=== PATIENT | male | born 1945 | race Caucasian/White ===

== ENCOUNTER → 2016-09-26 | Outpatient (CLI) | payer OTHER ==
--- NOTE | 2016-09-26 11:17 | MR ---
MRI Left Knee Without Contrast History: Left knee pain. Twisting injury. ICD-10 code S89.92XA. Technique: MRI was performed of the left knee using a 3 [employer] MRI system. Sagittal, coronal, and axia l imaging was obtained with standard imaging sequences. Findings: General: There is a mild suprapatellar joint effusion. No evidence for bone contusion. Subcortical cy st is seen in the posterior weightbearing portion of the medial tibial plateau. Lobulated complex flu id collection or soft tissue nodule is seen along the posterior aspect of the biceps femoris tendon a nd proximal fibular head. This is near the peroneal nerve. The signal intensity is mildly heterogeneo us on the T2-weighted imaging but hyperintense. Ligaments and tendons: Anterior cruciate and posterior cruciate ligaments are intact and unremarkable . Medial collateral ligament is unremarkable. There is a thin fluid collection along the distal semim embranosus tendon suggesting a ganglion or atypical extension of a Barrett cyst. The iliotibial band, f ibular collateral ligament, and biceps femoris are unremarkable. Popliteus muscle and tendon are inta ct. Menisci and cartilage: Abnormal signal intensity and contour abnormality are seen at the undersurface of the posterior horn lateral meniscus. Some mild truncation and fraying are seen at the free edge. There is also abnormal signal intensity at the junction of the anterior horn and body to the inferior articular surface. Cartilage signal abnormality and mild thinning are seen in the posterior weightbe aring portion of the lateral compartment. Degenerative signal is seen in the posterior horn medial meniscus extending to the inferior articular surface on a couple sagittal images suggesting a small degenerative undersurface tear. No significan t cartilage attenuation in the medial compartment. Extensor mechanism: Cartilage signal abnormality and thinning are seen in the patellofemoral compartm ent. Thinning is more predominant in the superior lateral facet of the patella with reactive subartic ular bone marrow edema. Quadriceps tendon and patellar tendon are unremarkable. Impression: 1. Undersurface tear lateral meniscus, more predominant in the posterior horn, with contour abnormali ty. 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 2. Small degenerative undersurface tear posterior horn medial meniscus. 3. 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 4. 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 Consider postcontrast imaging to differentiate. 5. Mild suprapatellar joint effusion. 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
== END ==
LOC: FIMAGING 07:37
PROVIDERS: ATTEND Nurse Practitioner Family
DX: S83.282A Other tear of lateral meniscus, current injury, left knee, initial encounter (principal)

== ENCOUNTER → 2016-10-16 | Outpatient (CLI) | payer OTHER ==
[~2016-10-16] MED LIST: GADOBUTROL 10 ML VIAL IVP ONE
--- NOTE | 2016-10-17 11:51 | MR ---
MRI lower extremity, left knee without and with contrast. History: Soft tissue mass evaluation. Ganglion or soft tissue tumor or nerve tumor. ICD-10 code R22.9 . Comparison: September 26, 2016. Technique: MRI was performed of the knee using a 3 [employer] MRI system. Sagittal, coronal, and axial sandrita ging was obtained with standard imaging sequences. Images were obtained pre and postintravenous contr ast, 7 mL Gadavist. Findings: There is a bilobed smooth nodule along the course of the peroneal nerve posterior to the di stal biceps femoris tendon. This measures 3.3 cm craniocaudal. The more inferior portion of the bilob ed appearance measures 13 x 15 mm. There is mildly heterogeneous internal enhancement centrally of th e lesion. There is not peripheral wall enhancement of the lesion to indicate that this is a ganglion. There is no adjacent signal abnormality in the adjacent musculature and tendons. A lobulated septate d fluid collection is seen along the distal semimembranosus tendon with a thin septation of the septa tion and wall typical for a complex ganglion. The intra-articular pathology is described in the comparison report in detail, with no significant in terval change. Subcortical cysts are seen with mild enhancement in the posterior weightbearing portio n of the medial tibial plateau. There is also some subcortical cystic change and enhancement at the d egenerative change in the patella. There is thin smooth synovial enhancement of the suprapatellar christian nt effusion without significant synovial proliferation or soft tissue mass. 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 No features to suggest malignant peripheral nerve sh eath tumor. Recommend follow up.
== END ==
LOC: FIMAGING 09:24
PROVIDERS: ATTEND Orthopaedic Surgery
DX: R22.42 Localized swelling, mass and lump, left lower limb (principal)
CPT/HCPCS: 73723; A9585

== ENCOUNTER → 2017-02-14 | Outpatient (CLI) | payer OTHER | LOC: BHFA 09:15 | PROVIDERS: ATTEND Internal Medicine | DX: R94.31 Abnormal electrocardiogram [ECG] [EKG] (principal); R06.00 Dyspnea, unspecified ==

== ENCOUNTER → 2017-04-03 | Outpatient (CLI) | payer OTHER | LOC: BHFA 09:15 | PROVIDERS: ATTEND Internal Medicine Cardiovascular Disease | DX: I25.10 Atherosclerotic heart disease of native coronary artery without angina pectoris (principal); I45.4 Nonspecific intraventricular block; I10 Essential (primary) hypertension; R06.02 Shortness of breath ==

== ENCOUNTER → 2017-05-03 | Outpatient (CLI) | payer OTHER | LOC: BHFA 11:00 | PROVIDERS: ATTEND Internal Medicine Cardiovascular Disease | DX: R06.02 Shortness of breath (principal) ==